=== PATIENT | female | born 1995 | race African-American/Black ===

== ENCOUNTER 2019-01-13 12:05 | Emergency (ER) | payer MEDICAID ==
[~2019-01-13] VITALS: Ht 165.1 cm; Wt 67.6 kg
--- NOTE | 2019-01-13 12:30 | NUR ---
ED Nurse Note:urine sent to labs
--- NOTE | 2019-01-13 12:45 | Emergency Room Report ---
History of Present Illness General Chief Complaint: Complications Present Illness HPI 23 YO Female presents to the ED c/o 08/01 in severity lower cramping x 2 days. Bleeding mostly today hasnt bled through a full pad. No N/V, C/D. w. 1 pharmacological and one surgical. Denies n/v, c/d, She denies vaginal d /c. She denies dysuria, hematuria, urinary frequency or urgency. Pt. reports [facility], no IUP on US. Denies adnexal pain. reports pain is midline. Allergies: Coded Allergies: No Known Allergies (Unverified , 01/13/19) Patient History Past Medical History: see triage record Past Surgical History: none Pertinent Family History: none Last Menstrual Period: 12/06/18 Now: Yes : 3 Para: 0 Reviewed Nursing Documentation: PMH: Agreed; PSxH: Agreed Review of Systems All Other Systems: negative except mentioned in HPI Physical Exam Vital Signs Date Time Temp Pulse Resp B/P (MAP) Pulse Ox O2 Delivery O2 Flow Rate FiO2 01/13/19 12:16 99.1 69 16 117/77 (90) 99 Room Air Sp02 EP Interpretation: reviewed, normal General Appearance: no apparent distress, alert, GCS 15, non-toxic Head: normocephalic, atraumatic Eyes: bilateral eye normal inspection, bilateral eye PERRL ENT: hearing grossly normal, normal voice Neck: full range of motion Respiratory: lungs clear, normal breath sounds, speaking full sentences Cardiovascular #1: regular rate, rhythm Gastrointestinal: normal bowel sounds, non tender, soft, no guarding, other - no adnexal tenderness Rectal: deferred Genitourinary: normal inspection, no CVA tenderness, adnexa normal Musculoskeletal: back normal, gait/station normal, normal range of motion, non- tender Neurologic: alert, oriented x3, responsive, motor strength/tone normal, sensory intact, speech normal, grossly normal Psychiatric: judgement/insight normal Skin: no rash Lymphatic: no adenopathy Medical Decision Making PA Attestation Dr. Pearson Is my supervising Physician whom patient management has been discussed with. Diagnostic Impression: Primary Impression: , location unknown Additional Impressions: Threatened in early Vaginal bleeding in ER Course 23 YO Female presents to the ED c/o 5/10 in severity lower cramping x 2 days. Bleeding mostly today hasn't bled through a full pad. No N/V, C/D. w. 1 pharmacological and one surgical. Denies n/v, c/d, She denies vaginal d /c. She denies dysuria, hematuria, urinary frequency or urgency. Pt. reports [facility], no IUP on US. Denies adnexal pain. reports pain is midline. Ddx considered but are not limited to: Fibroid, ectopic , Fibroid, Spontaneous , UTI Vital signs: are WNL, pt. is afebrile H&PE are most consistent with: spotting during early , threatened , must r/o ectopic ORDERS: -CBC: WNL -CMP: WNL -Urine hcg- Positive -UA: WNL- RBC's consistent with cc. -Serum Hcg Quant: 6004 - Blood/RH type and screen- see attached labs --O Negative -Pelvic US complete- NO IUP, some fluid in the [id number]-per official radiology report- Please see report for specific details. ED INTERVENTIONS: None at this time. DISCHARGE: At this time pt. is stable for d/c to home. Will provide printed patient care instructions, and any necessary prescriptions. Care plan and follow up instructions have been discussed with the patient prior to discharge. Labs Test 01/13/19 12:21 01/13/19 12:40 Urine Color Pale yellow Urine Appearance Clear Urine pH 7 (4.5-8.0) Urine Specific [place] 1.010 (1.005-1.035) Urine Protein 1+ (NEGATIVE) Urine Glucose (UA) Negative (NEGATIVE) Urine Ketones Negative (NEGATIVE) Urine Blood 5+ (NEGATIVE) Urine Nitrite Negative (NEGATIVE) Urine Bilirubin Negative (NEGATIVE) Urine Urobilinogen Normal MG/DL (0.0-1.0) Urine Leukocyte Esterase 1+ (NEGATIVE) Urine RBC 30-40 /HPF (0 - 2) Urine WBC 0-2 /HPF (0 - 2) Urine Squamous Epithelial Cells Few /LPF (NONE/OCC) Urine Bacteria Few /HPF (NONE) Urine Mucus Few /LPF (NONE/OCC) White Blood Count 8.7 K/UL (4.8-10.8) Red Blood Count 4.15 M/UL (4.20-5.40) Hemoglobin 13.3 G/DL (12.0-16.0) Hematocrit 39.7 % (37.0-47.0) Mean Corpuscular Volume 96 FL (80-99) Mean Corpuscular Hemoglobin 32.0 PG (27.0-31.0) Mean Corpuscular Hemoglobin Concent 33.5 G/DL (32.0-36.0) Red Cell Distribution Width 10.3 % (11.6-14.8) Platelet Count 181 K/UL (150-450) Mean Platelet Volume 7.9 FL (6.5-10.1) Neutrophils (%) (Auto) 62.4 % (45.0-75.0) Lymphocytes (%) (Auto) 26.0 % (20.0-45.0) Monocytes (%) (Auto) 9.6 % (1.0-10.0) Eosinophils (%) (Auto) 1.3 % (0.0-3.0) Basophils (%) (Auto) 0.8 % (0.0-2.0) Human Chorionic Gonadotropin, Quant 6004 mIU/mL (1-6) CT/MRI/US Diagnostic Results CT/MRI/US Diagnostic Results : Imaging Test Ordered: OB US Impression "NO IUP, some fluid in the cul-de-sac. " per official radiology report- Please see report for specific details. Last Vital Signs Date Time Temp Pulse Resp B/P (MAP) Pulse Ox O2 Delivery O2 Flow Rate FiO2 01/13/19 12:16 99.1 69 16 117/77 (90) 99 Room Air Disposition: HOME, SELF-CARE Condition: Stable Scripts Vit No.138/Folic/Dha (Alive Gummy) 1 Each Tab.chew 1 EACH PO DAILY for 30 Days, #30 TAB Prov: Demetrice Ybarra 01/13/19 Patient Instructions: Threatened Miscarriage, [id number], Vaginal Bleeding During , First Trimester, Tfkl-[id number] Additional Instructions: Take medications as directed. - Hcg level was 6004 Follow up with a OBGYN within 48 hours, even if your symptoms have resolved. Return sooner to ED if new symptoms occur, or current symptoms become worse. - Please note that this Emergency Department Report was dictated using [employer] making machine operator technology software, occasionally this can lead to erroneous entry secondary to interpretation by the dictation equipment. Demetrice Ybarra Jan 13, 2019 12:45
[2019-01-13 12:54] LABS: APPEARANCE,URINE CLEAR; BILIRUBIN, URINE NEGATIVE (NEGATIVE); COLOR,URINE PALE YELLOW; GLUCOSE, URINE (UA) NEGATIVE (NEGATIVE); KETONES,URINE NEGATIVE (NEGATIVE); LEUKOCYTE ESTERASE ,URINE 1+ (NEGATIVE); NITRITE,URINE NEGATIVE (NEGATIVE); PH,URINE 7 (4.5-8.0); PROTEIN,URINE 1+ (NEGATIVE); UROBILINOGEN,URINE NORMAL MG/DL (0.0-1.0)
[2019-01-13 13:15] LABS: BASOPHILS % (AUTO) 0.8 % (0.0-2.0); EOSINOPHILS % (AUTO) 1.3 % (0.0-3.0); HEMATOCRIT 39.7 % (37.0-47.0); HEMOGLOBIN 13.3 G/DL (12.0-16.0); MEAN CORPUSCULAR VOLUME 96 FL (80-99); MONOCYTES % (AUTO) 9.6 % (1.0-10.0); NEUTROPHILS % (AUTO) 62.4 % (45.0-75.0); PLATELET COUNT 181 K/UL (150-450); RED BLOOD COUNT 4.15 M/UL (4.20-5.40); RED CELL DISTRIBUTION WIDTH 10.3 % (11.6-14.8); WHITE BLOOD COUNT 8.7 K/UL (4.8-10.8)
--- NOTE | 2019-01-13 13:15 | NUR ---
ED Nurse Note:blood sent to labs
--- NOTE | 2019-01-13 13:56 | NUR ---
ED Nurse Note:pt. went to abdominal U/S
--- NOTE | 2019-01-13 14:56 | Diagnostic Imaging Report ---
Indication: Pelvic pain and light vaginal bleeding, positive test Technique: Transabdominal and transvaginal images of the pelvis. Doppler interrogation of the ovaries Comparison: none Findings: Uterus is retroverted, measures 7.6 cm length by 3.7 cm AP. The endometrium measures 15 mm thick. No intrauterine is demonstrated. No myometrial abnormality. Echogenic foci in the cervix are of uncertain significance, may reflect small calcifications. There is trace free cul-de-sac fluid. The right ovary measures 4.5 cm length. Left ovary measures 2.6 cm length. No adnexal mass. Ovaries demonstrate normal blood flow on Doppler imaging. Impression: No intrauterine demonstrated. Differential considerations include spontaneous , very early , ectopic . Recommend correlation with serial beta-hCGs, follow-up sonography as indicated Small amount of free cul-de-sac fluid, presumably physiologic
[2019-01-13] MEDS ORDERED: ALIVE PRENATAL1 EACH PO (15:07)
--- NOTE | 2019-01-13 15:15 | NUR ---
ED Nurse Note:blood sent to labs
--- NOTE | 2019-01-13 15:25 | NUR ---
ER DISCHARGE NOTE: Patient is cleared to be discharged per ERMD, pt is aox4, on room air, with stable vital signs. pt was given dc and prescription instructions, pt was able to verbalize understanding, pt id band and iv site removed without complications. pt is able to ambulate with steady gait. pt took all belongings.
[2019-01-13 15:54] VITALS: BP 117/77
== END 2019-01-13 15:30 | disposition home or self-care (01) ==
LOC: EMR 12:59
DX: O20.0 Threatened abortion (principal); Z3A.00 Weeks of gestation of pregnancy not specified; O20.9 Hemorrhage in early pregnancy, unspecified
CPT/HCPCS: 36415; 76801; 76830; 81003; 84702; 85025; 86900; 86901; Z7502; 99284

== ENCOUNTER 2019-01-15 21:22 | Emergency (ER) | payer MEDICAID ==
[~2019-01-15] VITALS: Ht 162.6 cm; Wt 67.6 kg
[~2019-01-15 21:22] MED LIST: ALIVE PRENATAL1 EACH PO
--- NOTE | 2019-01-15 21:50 | NUR ---
ED Nurse Note: Patient in room OB. Accompanied by partner. Patient states she is but is unabole to confirm how many weeks. Patient states that has been experiencing spotting this morning but this evening the spotting has progressed to a larger amount. The patient states she has changed a sanitary pad three times but states also that she beled a lot whilst sitting on the toilet. Patient states she has passed clots. IV access to the left forearm and lab drawn for cross match. Patient has a rhesus negative blood group.
--- NOTE | 2019-01-15 22:07 | Emergency Room Report ---
History of Present Illness General Chief Complaint: Complications Source: Patient, Medical Record Present Illness HPI This is a 23-year-old female who is 3 para 0. She is approximately 4 to 5 weeks . She presents with chief running vaginal bleeding. She was here couple days ago with a positive test. hCG then was 6004. Ultrasound showed no IUP. No ectopic seen. Patient was discharged home with Pred miscarriage/ectopic precaution. She was spotting until about an hour ago. Then she had a heavy bleeding and passed a large clot. She has no pain. Denies any fever chills but no nausea no vomiting. No other complaint. Allergies: Coded Allergies: No Known Allergies (Unverified , 01/13/19) Patient History Past Medical History: see triage record, old chart reviewed Past Surgical History: none Pertinent Family History: none Social History: Denies: smoking Now: Yes : 1 Immunizations: other Reviewed Nursing Documentation: PMH: Agreed; PSxH: Agreed Nursing Documentation-PMH Past Medical History: No Stated History Review of Systems Eye: Denies: eye pain, blurred vision ENT: Denies: ear pain, nose congestion, throat swelling Respiratory: Denies: cough, shortness of breath Cardiovascular: Denies: chest pain, palpitations Gastrointestinal: Denies: abdominal pain, diarrhea, nausea, vomiting Genitourinary: Reports: vag bleed/dc Musculoskeletal: Denies: back pain, joint pain Skin: Denies: rash Neurological: Denies: headache, numbness Endocrine: Denies: increased thirst, increased urine Hematologic/Lymphatic: Denies: easy bruising All Other Systems: negative except mentioned in HPI Physical Exam Vital Signs Date Time Temp Pulse Resp B/P (MAP) Pulse Ox O2 Delivery O2 Flow Rate FiO2 01/15/19 21:47 98.4 83 18 119/71 (87) 100 Room Air Vitals normal Sp02 EP Interpretation: reviewed, normal General Appearance: well appearing, no apparent distress, alert Head: normocephalic, atraumatic Eyes: bilateral eye PERRL, bilateral eye EOMI ENT: hearing grossly normal, normal pharynx Neck: full range of motion, supple, no meningismus Respiratory: chest non-tender, lungs clear, normal breath sounds Cardiovascular #1: regular rate, rhythm, no murmur Gastrointestinal: normal bowel sounds, non tender, no mass, no organomegaly, no bruit, non-distended Musculoskeletal: back normal, gait/station normal, normal range of motion Psychiatric: mood/affect normal Medical Decision Making Diagnostic Impression: Primary Impression: Threatened in early ER Course Patient presents with vaginal bleeding. Most likely she is having a spontaneous . Her hCG from 2 days ago was around 6000. Today was around 10,000. Her bleeding really started about an hour prior to arrival. Ultrasound is negative for IUP. There is no evidence of ectopic. Will discharge home with reassurance and follow-up in 2 days for repeat beta-hCG. Patient is not have any pain. There is no evidence of any major bleeding in the cul-de-sac. CT/MRI/US Diagnostic Results CT/MRI/US Diagnostic Results : Imaging Test Ordered: Pelvic ultrasound Impression Read by toll transmission worker. No IUP seen. Small amount of bleeding in the pelvis. No evidence of ectopic. Last Vital Signs Date Time Temp Pulse Resp B/P (MAP) Pulse Ox O2 Delivery O2 Flow Rate FiO2 01/15/19 21:47 98.4 83 18 119/71 (87) 100 Room Air Status: improved Disposition: HOME, SELF-CARE Condition: Stable Additional Instructions: Follow-up in 2 days for repeat blood test on level. Return if symptoms worsen. Balwinder Patel MD Jan 15, 2019 22:07
--- NOTE | 2019-01-16 00:52 | Diagnostic Imaging Report ---
Indication: Pelvic pain and bleeding, positive test Technique: Transabdominal and transvaginal images of the pelvis. Doppler interrogation of the ovaries Comparison: none Findings: Uterus measures 8.5 cm length by 3.6 cm AP. Endometrial thickness is 12 mm. No intrauterine demonstrated. Small ill-defined fluid collection is seen in the cervix.. No myometrial abnormality. Right ovary measures 3 cm in length. And demonstrates a septated cyst, also evident previously. There is suggestion of a a 2.2 cm mass in the right adnexal region, not clearly evident previously. This demonstrates distal acoustic enhancement. The left ovary measures 3 cm in length. Both ovaries demonstrate normal flow. No adnexal mass demonstrated. There is equivocal trace free cul-de-sac fluid. Impression: No intrauterine demonstrated, despite positive test and increasing beta-hCGs since the previous exam. Right ovarian or adnexal 2.2 cm mass. There is evidence of some distal acoustic enhancement, indicating this could represent a hemorrhagic cyst, but solid mass is also possible and therefore this could represent an ectopic . Fluid within the endocervical canal. Nonspecific, but could represent an in progress Recommend correlation with clinical findings and serial beta-hCGs. Consider follow-up sonography as clinically indicated This agrees with the overnight [facility] preliminary report.
--- NOTE | 2019-01-16 00:54 | NUR ---
ER DISCHARGE NOTE: Following ultrasound scan and further MD review patient is cleared to be discharged per ERMD, pt is aox4. Patient has no pain. pt was given dc instructions both verbally and written, pt was able to verbalize understanding, pt id band and iv site removed without complications. pt is able to ambulate with steady gait. pt took all belongings. Patient accompanied by partner. Clean peripad provided pre discharge.
[2019-01-16 01:00] VITALS: BP 119/71
== END 2019-01-16 00:54 | disposition home or self-care (01) ==
LOC: EMR 22:02
DX: O20.0 Threatened abortion (principal); Z3A.01 Less than 8 weeks gestation of pregnancy
CPT/HCPCS: 36415; 76801; 76830; 84702; Z7502; 99284